=== PATIENT | male | born 1945 | race Caucasian/White ===

== ENCOUNTER 2017-01-26 10:06 | Emergency (ER) | payer OTHER ==
[~2017-01-26] VITALS: Ht 182.9 cm; Wt 89.8 kg
--- NOTE | ~2017-01-26 | CT71 ---
[facility] A Service of [facility] RADIOLOGY TEXT RESULTS PATIENT: STEVE BILLY JR LOCATION: [facility] : 49 UNIT #: [id number] AGE: [address]: Moreno Raza MD SEX: M ORDER DR: [id number] [facility] [address] [place], [place] [address] [id number] MR#: [id number] #: [id number] NAME: STEVE BILLY JR : 1945 SEX: M STUDY DATE/TIME: 01/26/2017 11:39 UNIT: [facility] ROOM: STUDY DESCRIPTION: CT Head Wo Contrast Attending Physician: Moreno Raza M.D. Ordering Physician: Moreno Raza M.D. Primary Care Physician: Wagner Posadas M.D. MEDICAL IMAGING REPORT This report is preliminary unless electronic signature is present EXAM Noncontrast head CT HISTORY Increasing weakness for 3-4 days. States fell 3 days ago. TECHNIQUE This CT exam was performed with one or more of the following radiation dose reduction techniques: Automatic exposure control, adjustment of mA and/or kV according to patient size, and iterative reconstruction. FINDINGS Axial noncontrast imaging of the brain demonstrates a subtle hyperdensity within the extraaxial space overlying the left frontal region near the left anterior cranial fossa. This is compatible with a small subdural hematoma. No definite subarachnoid hemorrhage is identified. No mass effect. The extraaxial collection estimated no more than 3 cm in length and maybe 4 mm in thickness. Underlying brain parenchyma unremarkable. No mass effect or midline shift. Bony calvarium, skull base, mastoids, sinuses unremarkable. The patient has some mild generalized atrophy and cerebellar atrophy compatible with the patient's history of known chronic alcohol abuse. IMPRESSION Extraaxial hyperdensity overlying the left frontal region just anterior to the sylvian fissure and along the anterior cranial fossa. This is compatible with a small subdural hematoma. No significant mass effect or midline shift. Underlying parenchyma unremarkable and there is no evidence of a fracture. ADDENDUM There is a low density lesion in the left basal ganglia compatible with old lacunar infarct. The results of the study were called and discussed [facility] A Service of [facility] RADIOLOGY TEXT RESULTS PATIENT: STEVE BILLY JR LOCATION: [facility] : [birth year] UNIT #: [id number] AGE: [address]: Moreno Raza MD SEX: M ORDER DR: with Dr. Raza in the emergency room following this dictation. STAT * RESULT Dictated by... Maureen Delvalle M.D. THIS IS AN ELECTRONICALLY VERIFIED REPORT Maureen Delvalle M.D. at 01/26/2017 5:01 PM LILIBETH/juan miguel TD: 01/26/2017 13:28 JOB #: [id number] MEDICAL IMAGING REPORT Page 1 of 1 COPY
--- NOTE | ~2017-01-26 | EKG ---
PATIENT: STEVE BILLY UNIT #: [id number] Ventricular Rate: 78 BPM Atrial Rate: 78 BPM P-R Interval: 174 ms QRS Duration: 96 ms Q-T Interval: 402 ms QTC Calculation(Bezet): 458 ms P [place]: 58 degrees Calculated R [place]: 3 degrees Calculated T [place]: 14 degrees Diagnosis Line: Normal sinus rhythm Diagnosis Line: Poor data quality Diagnosis Line: Normal ECG Diagnosis Line: When compared with ECG of 26-JAN-2017 10:42, Diagnosis Line: (unconfirmed) Diagnosis Line: No significant change was found Diagnosis Line: Confirmed by JEZ AGUILAR MD ([id number]) on 01/26/2017 Diagnosis Line: 5:03:51 PM INTERPRETING MD: LAUREN GLOVER
--- NOTE | ~2017-01-26 | CR72 ---
[facility] A Service of [facility] RADIOLOGY TEXT RESULTS PATIENT: STEVE BILLY JR LOCATION: [facility] : 49 UNIT #: [id number] AGE: [address]: Moreno Raza MD SEX: M ORDER DR: [id number] [facility] [address] [place], [place] [address] [id number] E MR#: [id number] Acc #: [id number] NAME: STEVE BILLY JR : 1945 SEX: M STUDY DATE/TIME: 01/26/2017 10:38 UNIT: [facility] ROOM: STUDY DESCRIPTION: CR Chest Single View Portable Attending Physician: Moreno Raza M.D. Ordering Physician: Moreno Raza M.D. Primary Care Physician: Wagner Posadas M.D. MEDICAL IMAGING REPORT This report is preliminary unless electronic signature is present EXAM Portable chest HISTORY Weakness, shortness of air x3 days. COMPARISON 06/24/2016 FINDINGS Portable view the chest demonstrates moderate lung volumes. No infiltrates or effusions. 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 Heart and great vessels are unremarkable. Elevation of the right humerus may reflect chronic rotator cuff tear. No pneumothorax. STAT * RESULT Dictated by... Maureen Delvalle M.D. THIS IS AN ELECTRONICALLY VERIFIED REPORT Maureen Delvalle M.D. at 01/26/2017 5:01 PM Adarsh TD: 01/26/2017 13:26 JOB #: [id number] MEDICAL IMAGING REPORT Page 1 of 1 COPY
--- NOTE | ~2017-01-26 | EKG ---
PATIENT: STEVE BILLY UNIT #: [id number] Ventricular Rate: 75 BPM Atrial Rate: 75 BPM P-R Interval: 168 ms QRS Duration: 102 ms Q-T Interval: 408 ms QTC Calculation(Bezet): 455 ms P [place]: 40 degrees Calculated R [place]: -4 degrees Calculated T [place]: 19 degrees Diagnosis Line: Normal sinus rhythm Diagnosis Line: Normal ECG Diagnosis Line: No previous ECGs available Diagnosis Line: Confirmed by JEZ AGUILAR MD ([id number]) on 01/26/2017 Diagnosis Line: 5:02:03 PM INTERPRETING MD: LAUREN GLOVER
[~2017-01-26 10:06] MED LIST: ASPIRIN81 M1 PO; COUMADIN2.5 MG PO; DOXEPIN PO; FISH OIL 1,2001 EAC1 PO; FLAXSEED OIL PO; GLUCOSAMINE CH1 EAC1 PO; KLONOPIN PO; KLONOPIN2 MG PO; LOVENOX100 MG/ML INJ; METAMUCIL SUGA283 GM PO; METAMUCIL283 GM; MIRALAX17 GM; MS CONTIN30 MG PO; MULTI-VITAMIN1 EAC1 PO; NEURONTIN PO; NIACIN1000 MG PO; NIACIN500 M1 PO; NORCO 10-325 TA1 TAB PO; SENNA PO; TEMAZEPAM PO; TIMOPTIC2.5 ML OP; VITAMIN C1000 M2 PO; [UNRECOGNIZED DRUG - OTHER]
[2017-01-26] MEDS ORDERED: TRIAMTERENE-HC1 EAC1 PO (10:21)
[2017-01-26] MEDS ORDERED: REGLAN10 MG PO (10:22)
[2017-01-26 10:50] LABS: BASOPHIL% 0.2 % (0-2.5); DIFF IND NO; EOSINOPHIL# 0.2 X10e3 (0-0.7); EOSINOPHIL% 1.5 % (0.0-7.0); HEMATOCRIT 35.3 % (38.0-50.0); LYMPHOCYTE# 1.1 X10e3 (1.0-3.5); LYMPHOCYTE% 8.6 % (17.0-45.0); MEAN CELL VOLUME 83.8 FL (83-96); MEAN CORPUSCULAR HEMOGLOBIN 28.3 PG (28-34); MEAN CORPUSCULAR HGB CONC 33.8 g/dL (30-36); MEAN PLATELET VOLUME 7.5 FL (6.5-11.5); MONOCYTE# 1.3 X10e3 (0-1.0); MONOCYTE% 10.1 % (3.0-12.0); NEUTROPHIL# 10.4 X10e3 (1.5-7.1); NEUTROPHIL% 79.6 % (40-75); PLATELET COUNT 269 X10e3 (140-420); RED BLOOD COUNT 4.22 X10e (3.90-5.60); RED CELL DISTRIBUTION WIDTH 13.8 % (11.0-15.5); WHITE BLOOD COUNT 13.1 X10e3 (4.0-10.5)
[2017-01-26 11:25] LABS: ALBUMIN SERUM 3.1 g/dL (3.5-5.0); BILIRUBIN, DIRECT 0.2 mg/dL (0.0-0.2); BILIRUBIN,INDIRECT 0.7 mg/dL (0.0-0.9); BILIRUBIN,TOTAL 0.9 mg/dL (0.2-2.0); CALCIUM SERUM 8.7 mg/dL (8.4-10.2); GLOM FILT RATE Estimated 76.5 mL/min (>60); PROTEIN TOTAL SERUM 7.2 g/dL (6.0-8.3)
[2017-01-26 11:27] LABS: POTASSIUM 2.8 mmol/L (3.5-5.1)
[2017-01-26 12:37] LABS: POC - CKMB 1.4 ng/mL (0.0-7.9); POC - TROPONIN <0.05 ng/mL (<=0.05)
[2017-01-26 13:25] LABS: URINE SOURCE CLEAN CATCH
[2017-01-26 13:30] LABS: URINE APPEARANCE CLEAR; URINE BILIRUBIN NEG (NEG); URINE BLOOD NEG (NEG); URINE COLOR YELLOW; URINE GLUCOSE NEG (NEG); URINE KETONE NEG (NEG); URINE LEUKOCYTE ESTERASE NEG (NEG); URINE NITRATE NEG (NEG); URINE PH 6.5 (5-8); URINE PROTEIN NEG (NEG)
[2017-01-26 13:34] LABS: CULTURE INDICATED? NO
[2017-01-26 14:20] LABS: INR 1.1; PARTIAL THROMBOPLASTIN TIME 29.4 SECONDS (23.5-31.3); PROTHROMBIN TIME (PATIENT) 11.7 SECONDS (10.0-11.7)
== END 2017-01-26 14:05 | disposition other institution (70) ==
LOC: CED 10:06
PROVIDERS: Emergency Medicine
DX: S06.5X9A Traumatic subdural hemorrhage with loss of consciousness of unspecified duration, initial encounter (principal); E87.6 Hypokalemia; R19.7 Diarrhea, unspecified; Z79.899 Other long term (current) drug therapy; Z91.81 History of falling; W19.XXXA Unspecified fall, initial encounter
CPT/HCPCS: 36415; 51702; 70450; 71010; 80048; 80076; 81003; 82553; 83605; 84443; 84484; 85025; 85610; 85730; 87040; 90471; 90715; 93005; 96360; 99285